=== PATIENT | male | born 1990 | race African-American/Black ===

== ENCOUNTER 2022-07-13 01:04 | Emergency (ER) | payer OTHER, SELFPAY ==
[2022-07-13] MEDS ORDERED: cefTRIAXone (ROCEPHIN) 500 MG VIAL ONE (01:22)
[2022-07-13] MEDS ORDERED: Sterile Water 10 ML ONE (01:22)
[2022-07-13 15:26] LABS: Chlam.trachomatis by PCR,Urine DETECTED (NotDetected); GC N.gonorrhoeae PCR,UrineVOID Not Detected (NotDetected)
== END 2022-07-13 01:42 | disposition home or self-care (01) ==
LOC: CSHERS 01:04
DX: Z20.2 Contact with and (suspected) exposure to infections with a predominantly sexual mode of transmission (principal); F17.210 Nicotine dependence, cigarettes, uncomplicated
CPT/HCPCS: 87491; 87591; 96372; 99283; J0696